=== PATIENT | male | born 1965 | race Hispanic/Latino ===

== ENCOUNTER 2020-10-19 23:20 | Emergency (ER) | payer BC, OTHER ==
[2020-10-20] MEDS ORDERED: ASPIRIN 81 MG CHEWABLE TABLET ONE (00:04)
[2020-10-20] MEDS ORDERED: HEPARIN/D5W 25,000 UNIT/500 ML BAG IV ONE (00:05)
[2020-10-20] MEDS ORDERED: NITROGLYCERIN 0.4 MG/TAB SL ONE (00:05)
[2020-10-20] MEDS ORDERED: CLOPIDOGREL 75 MG TABLET ONE (00:05)
[2020-10-20] MEDS ORDERED: HEPARIN 5000 UNIT/ML 1 ML VIAL ONE (00:05)
[2020-10-20 00:06] LABS: Absolute Lymphocytes (CBC) 2.3 K/uL (0.7-4.9); Basophils % 1.2 % (0-1.3); Hematocrit 47.4 % (39.6-49.0); Lymphocytes % 34.5 % (15.3-44.8); MPV 8.5 fL (7.6-11.3); RBC Red Blood Cell Count 5.26 M/uL (4.33-5.43)
[2020-10-20 00:07] LABS: Protime INR 0.91
[2020-10-20] MEDS ORDERED: ALTEPLASE 100 ML IV ONE (00:14)
--- NOTE | 2020-10-20 00:21 | ER ---
Nurse's Notes [facility] Name: Ilya Cruz Age: 55 yrs Sex: Male : 1965 Arrival Date: 10/19/2020 Time: 23:21 Bed 2 Private MD: Diagnosis: ST elevation (STEMI) myocardial infarction of unspecified site Presentation: 10/19 23:35 Chief complaint: Patient states: chest pain started about 45 minutes ago while patient rv having sexual intercourse/activity. pressure like, mid sternal, 5/10, constant pain, radiating to the neck. denies any cardiac problems. Coronavirus screen: Client denies travel out of the [place] in the last 14 days. Coronavirus screen: At this time, the client does not indicate any symptoms associated with coronavirus-19. Ebola Screen: No symptoms or risks identified at this time. Initial Sepsis Screen: Does the patient meet any 2 criteria? No. Patient's initial sepsis screen is negative. Does the patient have a suspected source of infection? No. Patient's initial sepsis screen is negative. Risk Assessment: Do you want to hurt yourself or someone else? Patient reports no desire to harm self or others. Onset of symptoms was October 19, 2020 at 23:00. 23:35 Method Of Arrival: Ambulatory rv 23:35 Acuity: KJ 2 rv Triage Assessment: 23:40 General: Appears uncomfortable, Behavior is calm, cooperative. Pain: Complains of pain rv in chest Pain radiates to neck Pain currently is 5 out of 10 on a pain scale. Quality of pain is described as pressure, Pain began 1 hour ago. Is continuous. EENT: No signs and/or symptoms were reported regarding the EENT system. Neuro: Level of Consciousness is awake, alert, obeys commands, Oriented to person, place, time, situation. Cardiovascular: Patient's skin is warm and dry. Rhythm is STEMI. Respiratory: Airway is patent Respiratory effort is even, unlabored. Derm: Skin is intact. Historical: - Allergies: 23:40 No Known Allergies; rv - Home Meds: 23:40 None [Active]; rv - PMHx: 23:40 None; rv - PSHx: 23:40 None; rv - Immunization history:: Adult Immunizations up to date. - Social history:: Smoking status: Patient denies any tobacco usage or history of. Screenin:42 Abuse screen: Denies threats or abuse. Denies injuries from another. Nutritional rv screening: No deficits noted. Tuberculosis screening: No symptoms or risk factors identified. Fall Risk None identified. Assessment: 10/20 00:44 Reassessment: Patient and/or family updated on plan of care and expected duration. Pain ea level reassessed. Patient is alert, oriented x 3, equal unlabored respirations, skin warm/dry/pink. Life flight at bedside. Pt being transferred to [facility]. Vital Signs: 10/19 23:35 BP 170 / 111; Pulse 99; Resp 18; Temp 98; Pulse Ox 100% ; Weight 77.11 kg; Height 5 ft. rv 6 in. (167.64 cm); Pain 5/10; 23:42 Weight 79.1 kg (M); rv 10/20 00:47 BP 140 / 107; Pulse 99; Resp 18; Temp 98; Pulse Ox 100% ; ea 10/19 23:42 Body Mass Index 28.15 (79.10 kg, 167.64 cm) rv ED Course: 10/19 23:21 Patient arrived in ED. am2 23:31 Jose Quintanilla RN is Primary Nurse. rv 23:31 Blake Gallo PA is PHCP. cp 23:31 Vin Barrientos MD is Attending Physician. cp 23:40 Triage completed. rv 23:40 Arm band placed on right wrist. Patient placed in the treatment room, on a stretcher, rv Patient notified of wait time. EKG completed in triage. Results shown to MD. 23:42 Patient has correct armband on for positive identification. matrix drier tender on. Pulse rv ox on. NIBP on. 23:42 Inserted saline lock: 20 gauge in right antecubital area, using aseptic technique. rv Blood collected. BY MADISON VELASCO. Patient maintains SpO2 saturation greater than 95% on room air. 23:50 Initiated transfer at [facility] with [place]. Call was transferred to PRANEETH Atwood, tt3 provider of pt. 10/20 00:18 XRAY Chest (1 view) In Process Unspecified. EDMS 00:39 COVID swab sent to lab. sg 00:48 No provider procedures requiring assistance completed. Patient transferred, IV remains ea in place. Administered Medications: 10/19 23:53 Not Given (Physician Discretion): Tenecteplase 40 mg IV at calculated rate once cp 23:59 Drug: PlaVIX 300 mg Route: PO; ea 10/20 00:50 Follow up: Response: No adverse reaction ea 00:00 Drug: Aspirin Chewable Tablet 324 mg Route: PO; ea 00:48 Follow up: Response: No adverse reaction ea 00:00 Drug: Nitrostat 0.4 mg Route: Sublingual; ea 00:00 Drug: Alteplase 100 mg Route: IV; Rate: calculated rate; Site: right antecubital; rv 00:51 Follow up: Response: No adverse reaction; IV Status: Infusion continued upon transfer ea 00:25 Drug: Heparin ([place]-Bolus with thrombolytic) - HEParin 60 units/kg {Co-Signature: karrie jones (Madison Zapata RN).} Route: IVP; Site: right hand; 00:50 Follow up: Response: No adverse reaction; Medication administered at discharge. ea 00:25 Drug: Atorvastatin 40 mg Route: PO; rv 00:52 Follow up: Response: No adverse reaction ea 00:27 Drug: Nitrostat 0.4 mg Route: Sublingual; ea 00:35 Drug: Nitrostat 0.4 mg Route: Sublingual; ea 00:50 Follow up: Response: No adverse reaction ea 00:52 CANCELLED (Physician Discretion): Potassium Effervescent Tablet 50 mEq PO once; ea dissolve in 4 ounces of water or juice Outcome: 00:21 ER care complete, transfer ordered by . cp 00:48 Transferred by helicopter to [facility]. ea 00:48 Condition: stable 00:48 Instructed on the need for transfer, Demonstrated understanding of instructions. 00:52 Patient left the ED. ea Signatures: Dispatcher [employer] EDMS Michael Lutz RN RN sg Page, Corey, PA PA cp Moreno, Amanda am2 Madison Zapata RN RN ea Vicente, Ronaldo, RN RN rv Trim, Tyler tt3 Madison Zapata RN, ea
--- NOTE | 2020-10-20 00:22 | EDPHYS ---
Physician Documentation [facility] Name: Ilya Cruz Age: 55 yrs Sex: Male : 1965 Arrival Date: 10/19/2020 Time: 23:21 Bed 2 Private MD: ED Physician Vin Barrientos HPI: 10/19 23:45 This 55 yrs old Male presents to ER via Ambulatory with complaints of Chest cp Pain. 23:45 The patient or guardian reports chest pain that is located primarily in the substernal cp area. 23:45 Onset: 1 hour(s) ago. The pain radiates to neck. Associated signs and symptoms: cp Pertinent negatives: abdominal pain, cough, diaphoresis, headache, lower extremity pain, lower extremity swelling, shortness of breath, syncope. 23:45 The chest pain is described as a pressure, constant, mild improvement while in ED. cp 23:45 Duration: The patient or guardian reports a single episode, that is still ongoing, but cp improving. Patient reports chest pain started while having intercourse. Historical: - Allergies: 23:40 No Known Allergies; rv - Home Meds: 23:40 None [Active]; rv - PMHx: 23:40 None; rv - PSHx: 23:40 None; rv - Immunization history:: Adult Immunizations up to date. - Social history:: Smoking status: Patient denies any tobacco usage or history of. ROS: 23:50 Constitutional: Negative for body aches, chills, fever, poor PO intake. cp 23:50 Eyes: Negative for injury, pain, redness, and discharge. cp 23:50 Cardiovascular: Positive for chest pain, Negative for edema, palpitations. 23:50 Respiratory: Negative for cough, shortness of breath, wheezing. 23:50 Abdomen/GI: Negative for abdominal pain, nausea, vomiting, and diarrhea. 23:50 Back: Positive for pain at rest. 23:50 Neuro: Negative for altered mental status, headache, syncope, weakness. 23:50 All other systems are negative. Exam: 23:48 ECG was reviewed by the Attending Physician. cp 23:52 Constitutional: The patient appears in no acute distress, alert, awake, cp non-diaphoretic, non-toxic, well developed, well nourished. 23:52 Head/Face: Normocephalic, atraumatic. cp 23:52 Eyes: Periorbital structures: appear normal, Conjunctiva: normal, no exudate, no injection, Sclera: no appreciated abnormality, Lids and lashes: appear normal, bilaterally. 23:52 ENT: External ear(s): are unremarkable, Nose: is normal, Mouth: Lips: moist, Oral mucosa: pink and intact, moist, Posterior pharynx: Airway: no evidence of obstruction, patent. 23:52 Chest/axilla: Inspection: normal, Palpation: is normal, no crepitus, no tenderness. 23:52 Cardiovascular: Rate: normal, Rhythm: regular, Edema: is not appreciated, JVD: is not appreciated. 23:52 Respiratory: the patient does not display signs of respiratory distress, Respirations: normal, no use of accessory muscles, no retractions, labored breathing, is not present, Breath sounds: are clear throughout, no decreased breath sounds, no stridor, no wheezing. 23:52 Abdomen/GI: Inspection: abdomen appears normal, Bowel sounds: active, all quadrants, Palpation: abdomen is soft and non-tender, in all quadrants, rebound tenderness, is not appreciated, voluntary guarding, is not appreciated, involuntary guarding, is not appreciated. 23:52 Back: ROM is normal. 23:52 Skin: no rash present. 23:52 Neuro: Orientation: to person, place \T\ time. Mentation: is normal, Cerebellar function: is grossly normal, Motor: moves all fours, strength is normal, Sensation: is normal. Vital Signs: 23:35 BP 170 / 111; Pulse 99; Resp 18; Temp 98; Pulse Ox 100% ; Weight 77.11 kg; Height 5 ft. rv 6 in. (167.64 cm); Pain 5/10; 23:42 Weight 79.1 kg (M); rv 10/20 00:47 BP 140 / 107; Pulse 99; Resp 18; Temp 98; Pulse Ox 100% ; ea 10/19 23:42 Body Mass Index 28.15 (79.10 kg, 167.64 cm) rv MDM: 00:04 Patient medically screened. cp 00:30 Physician consultation: was contacted at 00:15, regarding regarding transfer, to [facility]. patient's condition, DR Trevino, public health outreach worker, will be accepting physician. 00:50 Data reviewed: vital signs, nurses notes, lab test result(s), EKG, radiologic studies, cp plain films. 00:50 The patient was given aspirin in the Emergency Department. Test interpretation: by ED cp physician or midlevel provider: ECG. 10/19 23:44 Order name: Basic Metabolic Panel; Complete Time: 00:44 cp 10/20 00:45 Interpretation: Normal except: K 3.2; GLUC 387; CRE 1.60; GFR 45. 10/19 23:44 Order name: CBC with Diff; Complete Time: 00:44 cp 10/20 00:45 Interpretation: Normal except: EOSINOPHIL % 5.6. 10/19 23:44 Order name: LFT's; Complete Time: 00:44 cp 10/20 00:45 Interpretation: Normal except: AST 41; ALT 103; GLOB 3.7. 10/19 23:44 Order name: Magnesium; Complete Time: 00:44 10/19 23:44 Order name: NT PRO-BNP; Complete Time: 00:44 10/19 23:44 Order name: PT-INR; Complete Time: 00:44 10/19 23:44 Order name: Troponin (emerg Dept Use Only); Complete Time: 00:44 10/20 00:46 Interpretation: Abnormal: TROPED 0.05. 10/19 23:44 Order name: XRAY Chest (1 view) 10/19 23:44 Order name: EKG; Complete Time: 23:46 10/19 23:44 Order name: Cardiac monitoring; Complete Time: 00:06 10/19 23:44 Order name: EKG - Nurse/Tech; Complete Time: 00:06 10/19 23:44 Order name: IV Saline Lock; Complete Time: 00:06 10/19 23:44 Order name: Labs collected and sent; Complete Time: 00:06 10/19 23:44 Order name: O2 Per Protocol; Complete Time: 00:06 10/19 23:44 Order name: O2 Sat Monitoring cp EC/19 23:48 Rate is 98 beats/min. Rhythm is regular. TN interval is normal. QRS interval is normal. cp QT interval is normal. ST Segment is elevated in leads I, aVL, V2, V3, V4, V5. Interpreted by me. Reviewed by me. Administered Medications: 23:53 Not Given (Physician Discretion): Tenecteplase 40 mg IV at calculated rate once cp 23:59 Drug: PlaVIX 300 mg Route: PO; ea 10/20 00:50 Follow up: Response: No adverse reaction ea 00:00 Drug: Aspirin Chewable Tablet 324 mg Route: PO; ea 00:48 Follow up: Response: No adverse reaction ea 00:00 Drug: Nitrostat 0.4 mg Route: Sublingual; ea 00:00 Drug: Alteplase 100 mg Route: IV; Rate: calculated rate; Site: right antecubital; rv 00:51 Follow up: Response: No adverse reaction; IV Status: Infusion continued upon transfer ea 00:25 Drug: Heparin ([place]-Bolus with thrombolytic) - HEParin 60 units/kg {Co-Signature: karrie jones (Madison Zapata RN).} Route: IVP; Site: right hand; 00:50 Follow up: Response: No adverse reaction; Medication administered at discharge. ea 00:25 Drug: Atorvastatin 40 mg Route: PO; rv 00:52 Follow up: Response: No adverse reaction ea 00:27 Drug: Nitrostat 0.4 mg Route: Sublingual; ea 00:35 Drug: Nitrostat 0.4 mg Route: Sublingual; ea 00:50 Follow up: Response: No adverse reaction ea 00:52 CANCELLED (Physician Discretion): Potassium Effervescent Tablet 50 mEq PO once; ea dissolve in 4 ounces of water or juice Disposition: 01:36 Co-signature as Attending Physician, Vin Barrientos MD. ma2 Disposition: 10/20/20 00:21 Transfer ordered to [facility]. Diagnosis is ST elevation (STEMI) myocardial infarction of unspecified site. - Reason for transfer: Higher level of care. - Accepting physician is DR Trevino. - Condition is Stable. - Problem is new. - Symptoms have improved. Signatures: Dispatcher [employer] EDMS Blake Gallo PA PA cp Antunez, Elena, RN RN ea Alzahri, Mohammad, MD MD ma2 Jose Quintanilla RN RN rv Elena Antunez RN ea Corrections: (The following items were deleted from the chart) 00:29 00:11 CORONAVIRUS+MR.LAB.BRZ ordered. EDMS EDMS 00:52 00:47 Potassium Effervescent Tablet 50 mEq PO once; dissolve in 4 ounces of water or ea juice ordered. cp 00:52 00:21 10/20/2020 00:21 Transfer ordered to [facility]. ea Diagnosis is ST elevation (STEMI) myocardial infarction of unspecified site. Reason for transfer: Higher level of care. Accepting physician is DR Trevino. Condition is Stable. Problem is new. Symptoms have improved. cp
[2020-10-20] MEDS ORDERED: ATORVASTATIN 40 MG TAB ONE (00:27)
[2020-10-20 00:35] LABS: Albumin 3.9 g/dL (3.4-5.0); Bilirubin Direct 0.1 mg/dL (0-0.2); Bilirubin Total 0.5 mg/dL (0.2-1.0); Magnesium 2.3 mg/dL (1.8-2.4); Potassium 3.2 mmol/L (3.5-5.1); Protein, Total 7.6 g/dL (6.4-8.2); Troponin (Emerg Dept Use Only) 0.05 ng/mL (0.0-0.045)
[2020-10-20 00:57] VITALS: TEMP 98; O2SAT 100
[2020-10-20 00:58] VITALS: BP 140/107
--- NOTE | 2020-10-20 08:08 | RAD REPORT ---
EXAM DESCRIPTION: Javier Single View10/20/2020 12:17 am CLINICAL HISTORY: Chest pain COMPARISON: none FINDINGS: The lungs appear clear of acute infiltrate. The heart is normal size. The patient is in a poor degree of inspiration
== END 2020-10-20 00:52 | disposition short-term general hospital (02) ==
LOC: ER 23:20
DX: I21.3 ST elevation (STEMI) myocardial infarction of unspecified site (principal); Z20.822 Contact with and (suspected) exposure to COVID-19
CPT/HCPCS: 36415; 71045; 80048; 80076; 83735; 83880; 84484; 85025; 85610; 93005; 96365; 96375; 99285; U0003

== ENCOUNTER 2021-01-28 22:48 | Emergency (ER) | payer BC ==
--- OUTSIDE RECORDS SUMMARY | 2021-01-28 22:53 | XMS REPORT | Continuity of Care Document ---
:1965 Author Organization [facility] t Address [address] [place] [address] [address]. [address] [place] [address] Care Team Providers Name Role Phone Pcp MD Primary Care Physician Unavailable Jace VELASCO, N Attending Clinician Unavailable Manjeet LOPEZ, Y Attending Clinician Unavailable Bon VELASCO, A Attending Clinician Unavailable Postalian MD Attending Clinician Feliberto BONNER Attending Clinician POSTALIAN Attending Clinician Unavailable Evgeny VELASCO, T Attending Clinician Unavailable Lab, Fam Pob I Attending Clinician Unavailable Doctor Unassigned, Name Attending Clinician Unavailable POSTALIAN Admitting Clinician Unavailable Payers Payer Name Policy Type Policy Effective Date Expiration Date Sour ce Number BLUE CROSS/BLUE [id number] [facility] POS/PPO/EPOxxxxxx [place] [id number] 2020-Pr [phone] [id number], [place] [address]SWB Problems Condition Condition Condition Status Onset Resolution Last Treating Co mments Source Name Details Category Date Date Treatment Clinician Date STEMI (ST STEMI (ST Disease Active [facility] St elevation elevation 10-20 Lu s - myocardial myocardial 00:00: Me dical infarction infarction 00 Ce nter ) ) Allergies, Adverse Reactions, Alerts This patient has no known allergies or adverse reactions. Social History Social Habit Start Date Stop Date Quantity Comments Source History of tobacco Snuff User [facility] Sex Assigned At [facility] Tobacco use and 2020-10-22 2020-10-[address] [facility] [facility] - [facility]00 [facility]00 [facility] Smoking Status Start Date Stop Date Source Never smoker [facility] Medications Ordered Filled Start Stop Current Ordering Indication Dosage Frequency Signature Comments Components Source Medication Medication Date Date Medication? Clinician (SIG) Name Name prasugreL Yes 10mg QD Take [address] (EFFIENT) 10-22 tablet (10 Luke s - 10 mg Tab 00:00: mg total) Med ical tablet 00 by mouth Center daily. aspirin 81 2021- No 81mg QD Take [address] MG chewable 10-22 tablet (81 L ukes - tablet 00:00: 23:59 mg total) Medic al 00 :00 by mouth Center daily. metoprolol 2021- No 50mg QD Take [address] succinate 10-22 tablet (50 Shraddha es - (TOPROL-XL) 00:00: 23:59 mg total) Medical 50 MG 24 hr 00 :00 by mouth Cent er tablet daily. sacubitriL- Yes 1{tbl} Q.5D Take [address] valsartan 1-21 tablet by [facility] - (ENTRESTO) 00:00: mouth 2 Medi kati 24-26 mg 00 (two) Center Tab times daily. insulin Yes 30U Q.5D Inject 30 [facility] t glargine 1-21 Units [facility]ukes - (Lantus 00:00: subcutaneo Medi kati Solostar 00 usly 2 Center U-100 (two) Insulin) times 100 unit/mL daily. (3 mL) InPn insulin Use as [facility] regular -21 10- directed. [facility] - (NovoLIN R 00:00: 23:59 Medica l Regular 00 :00 Center U-100 Insuln) 100 unit/mL injection atorvastati 2020- No 80mg QD Take [address] n (LIPITOR) - 05-21 tablet (80 L ukes - 80 MG 00:00: 23:59 mg total) Medica l tablet 00 :00 by mouth Center nightly for 120 days. Vital Signs Vital Name Observation Time Observation Value Comments Source Systolic blood 2020-10-21 07:00:00 116 mm[Hg] [facility] Diastolic blood 2020-10-21 07:00:00 79 mm[Hg] [facility] Heart rate 2020-10-21 07:00:00 107 /min [facility] Body temperature 2020-10-21 07:00:00 37.44 [facility] Respiratory rate 2020-10-21 07:00:00 18 /min [facility] Oxygen saturation in 2020-10-21 07:00:00 96 /min [facility] Arterial blood by Medical Ce nter Pulse oximetry Body weight 2020-10-21 05:45:00 77.384 kg [facility] BMI 2020-10-21 05:45:00 27.54 kg/m2 [facility] Body height 2020-10-20 16:33:00 167.6 cm [facility] Procedures Procedure Date / Time Performed Performing Clinician [facility] e BLOOD CULTURE 2020-10-21 14:01:00 Feliberto [facility] BLOOD CULTURE 2020-10-21 13:55:00 Feliberto [facility] URINALYSIS W/ REFLEX 2020-10-21 13:53:00 Feliberto [facility] URINE CULTURE [facility] POCT-GLUCOSE METER 2020-10-21 13:42:00 Feliberto [facility] XR CHEST 1 VIEW 2020-10-21 10:24:00 Feliberto [facility] PORTABLE/BEDSIDE [facility] POCT-GLUCOSE METER 2020-10-21 07:31:00 Cam Trevino [facility] MAGNESIUM 2020-10-21 04:55:00 Feliberto [facility] PHOSPHORUS 2020-10-21 04:55:00 Feliberto [facility] CBC W/PLT COUNT & AUTO 2020-10-21 04:55:00 Feliberto [facility]en [facility] BASIC METABOLIC PANEL (7) 2020-10-21 04:55:00 Jasen Dao [facility] POCT-GLUCOSE METER 2020-10-20 22:54:00 Postalian, [facility] SARS-COV2/RT-PCR ([facility] & 2020-10-20 20:39:00 Feliberto [facility] - REF LABS) [facility] POCT-GLUCOSE METER 2020-10-20 16:39:00 Postalian, [facility] 2D ECHO W/ DOPPLER 2020-10-20 15:16:46 [facility] POCT-GLUCOSE METER 2020-10-20 11:10:00 Postalian, [facility] ECG 12-LEAD 2020-10-20 10:18:56 Postalian, [facility] TROPONIN I 2020-10-20 08:45:00 Postalian, [facility] POCT-GLUCOSE METER 2020-10-20 07:52:00 Postalian, [facility] CBC W/PLT COUNT & AUTO 2020-10-20 03:[facility] 2020-10-20 03:50:00 Ant [facility] MAGNESIUM 2020-10-20 03:[facility] NATRIURETIC FACTOR 2020-10-20 03:50[facility] LIPID PANEL 2020-10-20 [facility] 2020-10-20 [facility] 12-LEAD 2020-10-20 03:40[facility] PO[facility]ACT 2020-10-20 02:43:00 Postalian, [facility] POCT-ACT 2020-10-20 02:21:00 Postalian, [facility] POCT-ACT 2020-10-20 02:06:00 Postalian, [facility] ECG 12-LEAD 2020-10-20 01:26:14 Unknown, Hl7 Doctor [facility] CORONARY ANGIOS / PCI / 2020-10-20 01:15:00 Postalian, [facility] STENT [facility] REPORT OF PROCEDURE - 2020-10-20 00:00:00 [facility] Scanning [facility] VASCULAR DIAGRAM -SCAN 2020-10-20 00:00:00 Provider, Default [facility] - Scanning [facility] CARDIAC CATH REPORT - 2020-10-20 00:00:00 Provider, [facility] - SCAN Scanning [facility] Plan of Care Planned Activity Planned Date Details Comments Source Future Scheduled 2023-10-[address] [facility] - Test 00:00:00 (procedure) [code = [facility] [id number]] Future Scheduled 2020-10-[address] [facility] - Test 00:00:00 (12+) [code = [facility] DEPRESSION SCREENING (12+)] Future Scheduled 2020-06-[address] [facility] - Test 00:00:00 (#1) [code = [facility] INFLUENZA VACCINE (#1)] Future Scheduled 2017 SHINGLES VACCINES ([address] [facility] - Test 00:00:00 of 2) [code = [facility] SHINGLES VACCINES (1 of 2)] Future Scheduled 1986 DTAP/TDAP/TD VACCINES [facility] - Test 00:00:00 (1 - Tdap) [code = Medical C enter DTAP/TDAP/TD VACCINES (1 - Tdap)] Future Scheduled 1985 HEPATITIS C [facility]CRE[facility]ING [facility] - Test 00:00:00 [code = HEPATITIS C [facility] SCREENING] Future Scheduled [address] Shraddha es - Test 00:00:00 malignant neoplasm of Medica [facility] colon (procedure) [code = 482884836] Encounters Start End Encounter Admission Attending Care Care Encounter Source Date/Time Date/Time Type Type Clinicians Facility Department ID 2020-05-21 2020-05-21 Letter NEREYDA Pepper [id number] 00:00:00 00:00:00 (Out) Mary VARELA [id number] [facility] [id number] 2020-05-20 2020-05-20 Laboratory Lab, [facility] [id number] 09:01:04 09:21:04 Only Fam Pob I Health [id number] [place] [id number] Professio [id number] nal [address] 2020-05-20 2020-05-20 Letter Doctor NEREYDA [id number] 00:00:00 00:00:00 (Out) Unassigned, NICHOLE [id number] [facility] [id number] [id number] Results Test Description Test Time Test Comments Results Result Sourc e Comments VASCULAR DIAGRAM 2020-12-[address] [facility] S t [facility] -SCAN 12:12:55 unspecified - Medical provider. Center CARDIAC CATH 2020-10-[address] [facility] St [facility] REPORT - SCAN 13:12:07 unspecified - Medical provider. [place] Blood culture 2020-10-26 16:00:00 Test Item Value Reference Range Interpretation Comme nts Result (test code = 6463-4) No growth in 5 days [facility] [id number] 16:00:00 Test Item Value Reference Range Interpretation Comments CULTURE (BEAKER) (test No growth in 5 days code = 1095) BLOOD [id number] 16:00:00 Test Item Value Reference Range Interpretation Comments CULTURE (BEAKER) (test No growth in 5 days code = 1095) Urinalysis w/Microscopic + Reflex to [id number] 14:32:00 Test Item Value Reference Range Interpretation Comments Color, UA (test code Light Yellow = 5778-6) Clarity, UA (test Clear code = 5767-9) Specific [place], UA 1.008 1.001-1.035 (test code = 5811-5) pH, UA (test code = 6.0 5.0-8.0 5803-2) Protein, UA (test Negative Negative code = 51657-5) Glucose, UA (test 500 mg/dL Negative A code = 365) Ketones, UA (test Negative Negative code = 2514-8) Bilirubin, UA (test Negative Negative code = 85909-7) Blood, UA (test code Trace Negative A = 32860-9) Nitrite, UA (test Negative Negative code = 5802-4) Leukocytes, UA (test Negative Negative code = 5799-2) Urobilinogen, UA 0.2 mg/dL 0.2-1 (test code = 73746-9) RBC, UA (test code = 1 See_Comment [Autom ated 06061-9) message] The system which generated this result transmit lauren reference range : /HPF. The reference range was not used to interpret this result as normal/abnormal . WBC, UA (test code = <1 See_Comment [Autom ated 5821-4) message] The system which generated this result transmit lauren reference range : /HPF. The reference range was not used to interpret this result as normal/abnormal . Mucus (test code = Rare 8247-9) Squam Epithel, UA <1 See_Comment [Automate d (test code = 84940-1) messag e] The system which generated this result transmit lauren reference range : /HPF. The reference range was not used to interpret this result as normal/abnormal . Specimen Source (test code = 2795) ERMA (test code = ERMA) Senior Oracle Developer ID - [auto]Senior Oracle Developer ID - tech Lab Interpretation Abnormal (test code = 59164-3) [facility] URINE [id number] 14:32:00 Test Item Value Reference Range Interpretation Comments COLOR (BEAKER) (test code = 470) Light Yellow CLARITY (BEAKER) (test code = Clear 469) SPECIFIC GRAVITY UA (BEAKER) 1.008 1.001-1.035 (test code = 468) PH UA (BEAKER) (test code = 467) 6.0 5.0-8.0 PROTEIN UA (BEAKER) (test code = Negative Negative 464) GLUCOSE UA (BEAKER) (test code = 500 mg/dL Negative A 365) KETONES UA (BEAKER) (test code = Negative Negative 371) BILIRUBIN UA (BEAKER) (test code Negative Negative = 462) BLOOD UA (BEAKER) (test code = Trace Negative A 461) NITRITE UA (BEAKER) (test code = Negative Negative 465) LEUKOCYTE ESTERASE UA (BEAKER) Negative Negative (test code = 466) UROBILINOGEN UA (BEAKER) (test 0.2 mg/dL 0.2-1.0 code = 463) RBC UA (BEAKER) (test code = 1 /HPF 519) WBC UA (BEAKER) (test code = < /HPF 520) MUCUS (BEAKER) (test code = Rare 1574) SQUAMOUS EPITHELIAL (BEAKER) < /HPF (test code = 516) SOURCE(BEAKER) (test code = 2795) Senior [employer] Developer ID - [auto]Senior Oracle Developer ID - techPOC-Glucose [id number] 13:53:00 Test Item Value Reference Range Interpretation Comments POC-Glucose Meter (test 154 mg/dL 70-110 H : TE STED AT [facility] code = 1538) [address] [facility], 770 30: Senior Oracle Developer/Techni diana ID = [id number] for Obi, Melany Lab Interpretation (test Abnormal code = 14568-7) [facility]SE [id number] 13:53:00 Test Item Value Reference Range Interpretation Comments POC-GLUCOSE METER 154 mg/dL 70-110 H : TESTED A T [facility] 6720 (BEAKER) (test code = MARBELLA Loaiza [facility], 1538) [address]: Senior Oracle Developer/Techni diana ID = [id number] for Ob i, Melany RAD, CHEST, 1 VIEW, NON [id number] 11:10:00Reason for exam:->sobShould this be performed at the bedside?->Yes [facility] : 1965 Sex: MFINAL REPORT INDICATION: sob COMPARISON: None TECHNIQUE: Single frontal view of the chest. FINDINGS: Lungs and pleura: Clear lungs. No effusion.Heart and mediastinum: Normalheart size. Unremarkable mediastinal contours.Osseous structures: No acute abnormality.Other: None.IMPRESSION: No acute intrathoracic abnormality. Signed: Cristiane Rodriguez Verified Date/Time: 10/21/2020 11:10:53 Reading Location: [facility] Radiology Reading Room XR chest 1 view portable / [id number] 11:10:00Interface, External Ris In - 10/21/2020 11:13 AM CSTFINAL REPORT INDICATION: sob COMPARISON: None TECHNIQUE: Single frontal view of the chest. FINDINGS: Lungs and pleura: Clear lungs. No effusion.Heart and mediastinum: Normal heart size. Unremarkable mediastinal contours.Osseousstructures: No acute abnormality.Other: None. IMPRESSION: No acute intrathoracic abnormality. Signed : Cristiane Rodriguez Verified Date/Time: 10/21/2020 11:10:53 Reading Location: [facility] Radiology Reading Room [facility] SARS-CoV2/RT-PCR (Asymptomatic ONLY)2020-10-21 09:29:00 Test Item Value Reference Range Interpretation Comments SARS-COV2/RT-PCR Negative Not Detected, (test code = Negative, See 25817-4) external report for linked test SARS-COV-2 [facility] PERFORMING LAB (test code = 94642-7) ERMA (test code = Negative result for this ERMA) test determines that SARS-CoV-2 RNA was not present in the specimen above the Limit of Detection (LOD). However, Negative results do not preclude SARS-CoV-2 infection and should not be used as the sole basis for treatment or patient management decisions. Negative results must be combined with clinical observations, patient history, and epidemiological information. A false negative result may occur if a specimen is improperly collected, transported or handled. A false negative result should be considered if patient's recent exposures or clinical presentation indicate that COVID-19 (SARS-CoV-2) is likely and diagnostic tests for other causes of illness are negative. Re-testing should be considered in cases of suspected false negatives. The limit of detection for this assay is 800 copies/mL. This SARS CoV-2 test is a real-time RT-PCR test intended for the qualitative detection of nucleic acid from SARS-CoV-2 in a nasopharyngeal swab specimen collected from individuals suspected of COVID-19 by their healthcare provider. This test has not been Food and Drug Administration (FDA) cleared or approved. This is a modified version of an approved Emergency Use Authorization (EUA) and is in the process of review by the FDA. Once authorized by the FDA, the issued EUA will be effective until the declaration that circumstances exist justifying the authorization of the emergency use of in vitro diagnostic tests for detection and/or diagnosis of COVID-19 is terminated under Section 564(b)(2) of the Act or the EUA is revoked under Section 564(g) of the Act. Fact Sheet for Healthcare Providers:https://www.[employer]/sites/default/f christelle/product/documents/F act_Sheet_HC_Providers_L djw_XQOL-OwJ-4.pdf Fact Sheet for Healthcare Patients:https://www.Over 40 Females/sites/default/fi les/product/documents/Fa ct_Sheet_Patients_Lyra_S ARS-CoV-2.pdf Performing Laboratory:[place] [address], [place] [address] [place], [place] [address]ARS-COV2/RT-PCR ([facility] & REF LABS)2020-10-21 09:29:00 Test Item Value Reference Range Interpretation Comments SARS-COV2/RT-PCR (test Negative Not Detected, Negative, code = 2839554) See external report for linked test SARS-COV-2 PERFORMING LAB [facility] (test code = 5793656) Negative result for this test determines that SARS-CoV-2 RNA was not present in the specimen above the Limit of Detection (LOD). However, Negative results do not preclude SARS-CoV-2 infection and should not be used as the sole basis for treatment or patient management decisions. Negative results mustbe combined with clinical observations, patient history, and epidemiological information. A false negative result may occur if a specimen is improperly collected, transported or handled. A false negative result should be considered if patient's recent exposures or clinical presentation indicate that COVID-19 (SARS-CoV-2) is likely and diagnostic tests for other causes of illness are negative. Re-testing should be considered in cases of suspected false negatives.The limit of detection for this assay is 800 copies/mL.This SARS CoV-2 test is a real-time RT-PCR test intended for the qualitative detection of nucleic acid from SARS-CoV-2 in a nasopharyngeal swab specimen collected from individuals suspected of COVID-19 by their healthcare provider.This test has not been Food and Drug Administration (FDA) cleared or approved. This is a modified version of an approved Emergency Use Authorization (EUA) and is in the process of review by the FDA. Once authorized by the FDA, the issued EUA will be effective until the declaration that circumstances exist justifying the authorization of the emergency use of in vitro diagnostic tests for detection and/or diagnosis of COVID-19 is terminated under Section 564(b)(2) of the Act or the EUA is revoked under Section 564(g) of the Act.Fact Sheet for Healthcare Providers:https://www.iPierian.[employer]/sites/default/files/product/documents/Fact_Shee p_LH_Mmqhonfzh_Pjou_MYSV-EqU-3.pdfFact Sheet for Healthcare Patients:https://www.[employer]Pierian.[employer]/sites/default/files/product/ documents/Wbez_Zvqpq_Jukhrrij_Koux_CJQB-IhY-6.pdfPerforming Laboratory:[facility], [place] [address]Lzfts Metabolic Panel 2020-10-21 09:11:00 Test Item Value Reference Range Interpretation Comments Sodium (test code = 134 meq/L 136-145 L 2951-2) Potassium (test code = 3.8 meq/L 3.5-5.1 2823-3) Chloride (test code = 105 meq/L 98-107 5-0) CO2 (test code = 20 meq/L 22-29 L 2027-9) BUN (test code = 12 mg/dL 04-20 3094-0) Creatinine (test code 1.12 mg/dL 0.57-1.25 = 2160-0) Glucose (test code = 171 mg/dL 70-105 H 2345-7) Calcium (test code = 8.7 mg/dL 8.4-10.2 54513-1) EGFR (test code = 69 mL/min/1.73 [place] [address]-1) NOT ACCURATE CREATININE CLEARANCE IN PREDICTING GLOMERULAR FILTRATION RATE . ESTIMATED GFR I S NOT APPLICABLE FOR DIALYSIS PATIENTS. ERMA (test code = ERMA) Senior Oracle Developer ID - PASCUAL M Lab Interpretation Abnormal (test code = 80511-5) [facility] 09:11:00 Test Item Value Reference Range Interpretation Comments Magnesium (test code = 1.5 mg/dL 1.6-2.6 L 92215-1) ERMA (test code = ERMA) Senior Oracle Developer ID - PASCUAL M Lab Interpretation (test Abnormal code = 75891-0) [facility]21-[facility]-21 09:11:00 Test Item Value Reference Range Interpretation Comments Phosphorus (test code = 2.4 mg/dL 2.3-4.7 2777-1) ERMA (test code = ERMA) Senior Oracle Developer ID - PASCUAL M Lab Interpretation (test Normal code = 25241-4) [facility] METABOLIC [id number] 09:11:00 Test Item Value Reference Range Interpretation Comments SODIUM (BEAKER) 134 meq/L 136-145 L (test code = 381) POTASSIUM (BEAKER) 3.8 meq/L 3.5-5.1 (test code = 379) CHLORIDE (BEAKER) 105 meq/L 98-107 (test code = 382) CO2 (BEAKER) (test 20 meq/L 22-29 L code = 355) BLOOD UREA NITROGEN 12 mg/dL 04-20 (BEAKER) (test code = 354) CREATININE (BEAKER) 1.12 mg/dL 0.57-1.25 (test code = 358) GLUCOSE RANDOM 171 mg/dL 70-105 H (BEAKER) (test code = 652) CALCIUM (BEAKER) 8.7 mg/dL 8.4-10.2 (test code = 697) EGFR (BEAKER) (test 69 mL/min/1.73 ESTIMA LAUREN GFR IS code = 1092) sq m NOT ACCURATE CREATININE CLEARANCE IN PREDICTING GLOMERULAR FILTRATION RATE . ESTIMATED GFR I S NOT APPLICABLE FOR DIALYSIS PATIEN TS. Senior Oracle Developer ID - PASCUAL [id number] 09:11:00 Test Item Value Reference Range Interpretation Comments MAGNESIUM (BEAKER) (test code = 1.5 mg/dL 1.6-2.6 L 627) Senior Oracle Developer ID - PASCUAL [id number] 09:11:00 Test Item Value Reference Range Interpretation Comments PHOSPHORUS (BEAKER) (test code = 2.4 mg/dL 2.3-4.7 604) Senior Oracle Developer ID - PASCUAL MPOCT-GLUCOSE [id number] 07:45:00 Test Item Value Reference Range Interpretation Comments POC-GLUCOSE METER 186 mg/dL 70-110 H : TESTED A T [facility] 6720 (BEAKER) (test code = [place], 1538) [address]: Senior Oracle Developer/Techni diana ID = [id number] for JEANNIE PEDERSON CBC with platelet count + automated [id number] 06:34:00 Test Item Value Reference Range Interpretation Comments WBC (test code = 6690-2) 14.7 See_Comment H [A utomated message] The system [employer] generated this result transmitted ref erence range: 3.5 - 10 .5 K/L. The refe rence range was not u sed to interpret this result as normal/abnor mal. RBC (test code = 789-8) 5.45 See_Comment [Au tomated message] The system [employer] generated this result transmitted ref erence range: 4.63 - 6 .08 M/L. The refe rence range was not u sed to interpret this result as normal/abnor mal. MCHC (test code = 786-4) 34.8 See_Comment [A utomated message] The system [employer] generated this result transmitted ref erence range: 32.3 - 3 6.5 GM/DL. The refe rence range was not u sed to interpret this result as normal/abnor mal. Hematocrit (test code = 46.3 % 40.1-51 4544-3) MCV (test code = 787-2) 85.0 fL 79-92.2 Disc ordant MCV results compare d to previous result s; clinical correl ation required. MCH (test code = 785-6) 29.5 pg 25.7-32.2 RDW (test code = 788-0) 12.7 % 11.6-14.4 Platelets (test code = 230 See_Comment [Aut omated message] 777-3) The system [employer] generated this result transmitted ref erence range: 150 - 45 0 K/CU MM. The referen ce range was not u sed to interpret this result as normal/abnor mal. MPV (test code = 10.2 fL 9.4-12.4 52715-0) nRBC (test code = 413) 0 See_Comment [Aut omated message] The system [employer] generated this result transmitted ref erence range: 0 - 0 /1 00 WBC. The refere nce range was not u sed to interpret this result as normal/abnor mal. % Neutros (test code = 78 % 429) % Lymphs (test code = 13 % 430) % Monos (test code = 8 % 431) % Eos (test code = 432) 0 % % Baso (test code = 437) 0 % # Neutros (test code = 11.39 See_Comment H [Aut omated message] 670) The system [employer] generated this result transmitted ref erence range: 1.78 - 5 .38 K/L. The refe rence range was not u sed to interpret this result as normal/abnor mal. # Lymphs (test code = 1.94 See_Comment [Auto mated message] 414) The system [employer] generated this result transmitted ref erence range: 1.32 - 3 .57 K/L. The refe rence range was not u sed to interpret this result as normal/abnor mal. # Monos (test code = 1.22 See_Comment H [Autom ated message] 415) The system [employer] generated this result transmitted ref erence range: 0.30 - 0 .82 K/L. The refe rence range was not u sed to interpret this result as normal/abnor mal. # Eos (test code = 416) 0.03 See_Comment L [Au tomated message] The system [employer] generated this result transmitted ref erence range: 0.04 - 0 .54 K/L. The refe rence range was not u sed to interpret this result as normal/abnor mal. # Baso (test code = 417) 0.05 See_Comment [A utomated message] The system [employer] generated this result transmitted ref erence range: 0.01 - 0 .08 K/L. The refe rence range was not u sed to interpret this result as normal/abnor mal. Immature 0 % 0-1 Granulocytes-Relative (test code = 2801) Lab Interpretation (test Abnormal code = 20099-1) [facility] W/PLT COUNT & AUTO [id number] 06:34:00 Test Item Value Reference Range Interpretation Comments WHITE BLOOD CELL COUNT 14.7 K/ L 3.5-10.5 H (BEAKER) (test code = 775) RED BLOOD CELL COUNT 5.45 M/ L 4.63-6.08 (BEAKER) (test code = 761) HEMOGLOBIN (BEAKER) 16.1 GM/DL 13.7-17.5 (test code = 410) HEMATOCRIT (BEAKER) 46.3 % 40.1-51.0 (test code = 411) MEAN CORPUSCULAR 85.0 fL 79.0-92.2 Discordant MCV VOLUME (BEAKER) (test result s compared to code = 753) previous result s; clinical correl ation required. MEAN CORPUSCULAR 29.5 pg 25.7-32.2 HEMOGLOBIN (BEAKER) (test code = 751) MEAN CORPUSCULAR 34.8 GM/DL 32.3-36.5 HEMOGLOBIN CONC (BEAKER) (test code = 752) RED CELL DISTRIBUTION 12.7 % 11.6-14.4 WIDTH (BEAKER) (test code = 412) PLATELET COUNT 230 K/CU MM 150-450 (BEAKER) (test code = 756) MEAN PLATELET VOLUME 10.2 fL 9.4-12.4 (BEAKER) (test code = 754) NUCLEATED RED BLOOD 0 /100 WBC 0-0 CELLS (BEAKER) (test code = 413) NEUTROPHILS RELATIVE 78 % PERCENT (BEAKER) (test code = 429) LYMPHOCYTES RELATIVE 13 % PERCENT (BEAKER) (test code = 430) MONOCYTES RELATIVE 8 % PERCENT (BEAKER) (test code = 431) EOSINOPHILS RELATIVE 0 % PERCENT (BEAKER) (test code = 432) BASOPHILS RELATIVE 0 % PERCENT (BEAKER) (test code = 437) NEUTROPHILS ABSOLUTE 11.39 K/ L 1.78-5.38 H COUNT (BEAKER) (test code = 670) LYMPHOCYTES ABSOLUTE 1.94 K/ L 1.32-3.57 COUNT (BEAKER) (test code = 414) MONOCYTES ABSOLUTE 1.22 K/ L 0.30-0.82 H COUNT (BEAKER) (test code = 415) EOSINOPHILS ABSOLUTE 0.03 K/ L 0.04-0.54 L COUNT (BEAKER) (test code = 416) BASOPHILS ABSOLUTE 0.05 K/ L 0.01-0.08 COUNT (BEAKER) (test code = 417) IMMATURE 0 % 0-1 GRANULOCYTES-RELATIVE PERCENT (BEAKER) (test code = 2801) POCT-GLUCOSE [id number] 00:01:00 Test Item Value Reference Range Interpretation Comments POC-GLUCOSE METER 214 mg/dL 70-110 H : Notified RN/MD: ([facility]) (test code = TESTED AT [facility] 6720 1538) [facility], [id number]: Senior Oracle Developer/Techni diana ID = [id number] for JUAN J HOGUE POCT-GLUCOSE [id number] 16:50:00 Test Item Value Reference Range Interpretation Comments POC-GLUCOSE METER 259 mg/dL 70-110 H : TESTED A T [facility] 6720 ([facility]) (test code = 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 Physician Procedure Type of Study TTE procedure:2DECHO W DOPPLER(CW/PW/COLOR) (CHAUNCEY) Indications:Evaluation of LV Function Post AMI.Clinical HistorySTEMI, DM, s/p Thromolysis w/ rescue PCI to LAD10/20/2020, Chest painHGB 15.3HCT 45.9%Contrast Medium: Definity.Height: 66 inches Weight: 79.38 kg (175 lbs) BSA: 1.89 m^2 BMI: 28.25 kg/m^2HR: 97 bpm BP: 136/103 mmHg Summary 1. Normal LV size. The following segment(s) appear akinetic: mid to distal septum, anterior and all mid to apical segments. LVEF is moderately reduced (30-34%) . 2. Normal RV size and function. 3. Grade 1 diastolic dysfunction (impaired relaxation and low-normal LA pressure). No evidence of LV mass/thrombus. 4. Unable to estimate peak systolic PA pressure. Previous Study No prior studies available for comparison. Signature Findings Te chnical Quality: Technically difficult exam. Left Ventricle LV endocardium is adequately visualized with IV ultrasound enhancing agent. The left ventricle is chamber size (by vol index) is normal (male - LVED vol - 34-74ml/m2). No evidence of LV hypertrophy. The following segment(s) appear akinetic: mid to distal septum, anterior and all mid to apical segments. The other segments are normal. Global LV systolic function moderately reduced . LVEF by Lorenzo's method of disk assessment is moderately reduced (30-34%) . Grade 1 diastolic dysfunction (impaired relaxation and low-normal LA pressure). No evidence of LV mass/thrombus. Left Atrium LA size is normal (16-34 ml/m2) . Right Ventricle The right ventricular chamber size and systolic function are within normal limits. Right Atrium RA size is normal. Aortic Valve Normal AoV structure and function. Mitral Valve Nor mal MV structure and function. Tricuspid Valve TV structure is normal. No evidence of tricuspid regurgitation. Unable to estimate peak systolic PA pressure; inadequate TR velocity signal. Pulmonic Valve Normal PV structure and function by limited views and Doppler. Aorta Aortic root size (SInus of Valsalva diameter) is normal . Pericardium No pericardial effusion is visualized. IVC/SVC/PA/PV/Pleural The estimated RA pressure by IVC dynamics 0-5mmHg . Chambers/Structures Left Atrium LA Volume: 37.13 ml LA Area: 13.78cm^2 LA Vol. Index: 20 ml/m^2 Left Ventricle LVIDd: 4.51 cm LV Septum Diastolic: 1.05 cm LV PW Diastolic: 1.01 cm LVEDV Lorenzo's:127.99 ml LVESV Lorenzo's:84.96 ml LVEF Lorenzo's: 33.6 % LVEDVI: 68 ml/m^2 LVESVI: 45 ml/m^2 LVOT Diameter: 2.22 cm Right Ventricle RVOT VTI: 8.48 cm Aorta Ao Root S of Chela.: 3.06 cm Ascending Aorta: 2.81 cm Doppler/Quantitative Measurements Mitral Valve MV Peak E-Wave: 0.61 m/s MV Peak A-Wave: 0.75 m/s E/A Ratio: 0.81 Peak Gradient: 1.47 mmHg Deceleration Time: 182 msec MV Arpan. Peak: Tissue Doppler E' Lateral Velocity: 0.09 m/s E/E': 6.59Aortic Valve Peak Velocity: 1.05 m/s Mean Velocity: 0.69 m/s Peak Gradient: 4.42 mmHg Mean Gradient: 2.19 mmHg AV Area (continuity): 2.8 cm^2 AV VTI: 13.52 cm AV DVI:0.72 LVOT Peak Velocity: 0.67 m/s Peak Gradient: 1.82 mmHg Mean Velocity: 0.44 m/s Mean Gradient: 0.94 mmHg LVOT Diameter: 2.22 cm LVOT VTI: 9.8 cm LVOT Area: 3.87 cm^2 LVOT SV:37.91 ml LVOT CO: 3.68 l/min LVOT CI: 1.95 l/min/m^2CNaval Hospital LemooreECG 12 [id number] 16:27:55Interface, External Ris In - 10/20/2020 4:28 PM CSTVentricular Rate 101 BPMAtrial Rate 101 BPMP-R Interval 154 msQRS Duration 86 msQ-T Interval 312 msQTC Calculation(Bazett) 404 msP Bern 50 degreesR Bern 178 degreesT Bern 7 degreesSinus tachycardiaAnterolateral infarct (cited on or before 20-OCT-2020) * ACUTE [place] * Abnormal ECGWhen compared with ECG of 20-OCT-2020 03:40,No significant change was foundConfirmed by MD Kinney Roberto ([id number]) on 10/20/2020 4:27:48 [facility] [id number] 11:22:00 Test Item Value Reference Range Interpretation Comments POC-GLUCOSE METER 286 mg/dL 70-110 H : TESTED A T [facility] 6720 (LYUDMILA) (test code = MARBELLA Loaiza [place], 1538) [id number]: Senior Oracle Developer/Techni diana ID = [id number] for NATALIE BROWNE Troponin [id number] 09:56:00 Test Item Value Reference Range Interpretation Comments Troponin I (test code = 390.47 ng/mL 0-0.03 93801-3) ERMA (test code = ERMA) Troponin I (TnI) levels must be interpreted in the context of the presenting symptoms and the clinical findings. Elevated TnI levels indicate myocardial damage, but are not specific for ischemic heart disease. Elevated TnI levels are seen in patients with other cardiac conditions (including myocarditis and congestive heart failure), and slight TnI elevations occur in patients with other conditions, including sepsis, renal failure, acidosis, acute neurological disease, and persistent tachyarrhythmia.Opera tor ID - ANTHONY FOperator ID - ANTHONY F Lab Interpretation (test Abnormal code = 69820-6) [facility] [id number] 09:56:00 Test Item Value Reference Range Interpretation Comments TROPONIN I (BEAKER) (test code = 390.47 ng/mL 0.00-0.03 HH 397) Troponin I (TnI) levels must be interpreted in the context of the presenting symptoms and the clinical findings. Elevated TnI levels indicate myocardial damage, but are not specific for ischemic heart disease. Elevated TnI levels are seen in patients with other cardiac conditions (including myocarditis and congestive heart failure), and slight TnI elevations occur in patients with other conditions, including sepsis, renal failure, acidosis, acute neurological disease, and persistent tachyarrhythmia.Senior Oracle Developer ID - ANTHONY FOperator ID Juventino CRUZ FPOCT-GLUCOSE [id number] 08:04:00 Test Item Value Reference Range Interpretation Comments POC-GLUCOSE METER 284 mg/dL 70-110 H : Notified RN/MD: (LYUDMILA) (test code = TESTED AT [facility] 67 1538) [facility], [id number]: Senior Oracle Developer/Techni diana ID = [id number] for NATALIE BROWNE Hemoglobin [id number] 07:54:00 Test Item Value Reference Range Interpretation Comments Hemoglobin A1C (test code = 4548-4) 8.9 % 4.3-6.1 H Lab Interpretation (test code = Abnormal 23674-9) [facility] HospitalHEMOGLOBIN [id number] 07:54:00 Test Item Value Reference Range Interpretation Comments HEMOGLOBIN A1C (BEAKER) (test code = 8.9 % 4.3-6.1 H 368) CBC W/PLT COUNT & AUTO [id number] 04:34:00 Test Item Value Reference Range Interpretation Comments WHITE BLOOD CELL COUNT (BEAKER) 11.9 K/ L 3.5-10.5 H (test code = 775) RED BLOOD CELL COUNT (BEAKER) 5.14 M/ L 4.63-6.08 (test code = 761) HEMOGLOBIN (BEAKER) (test code = 15.3 GM/DL 13.7-17.5 410) HEMATOCRIT (BEAKER) (test code = 45.9 % 40.1-51.0 411) MEAN CORPUSCULAR VOLUME (BEAKER) 89.3 fL 79.0-92.2 (test code = 753) MEAN CORPUSCULAR HEMOGLOBIN 29.8 pg 25.7-32.2 (BEAKER) (test code = 751) MEAN CORPUSCULAR HEMOGLOBIN CONC 33.3 GM/DL 32.3-36.5 (BEAKER) (test code = 752) RED CELL DISTRIBUTION WIDTH 12.5 % 11.6-14.4 (BEAKER) (test code = 412) PLATELET COUNT (BEAKER) (test 248 K/CU MM 150-450 code = 756) MEAN PLATELET VOLUME (BEAKER) 9.7 fL 9.4-12.4 (test code = 754) NUCLEATED RED BLOOD CELLS 0 /100 WBC 0-0 (BEAKER) (test code = 413) NEUTROPHILS RELATIVE PERCENT 87 % (BEAKER) (test code = 429) LYMPHOCYTES RELATIVE PERCENT 7 % (BEAKER) (test code = 430) MONOCYTES RELATIVE PERCENT 4 % (BEAKER) (test code = 431) EOSINOPHILS RELATIVE PERCENT 0 % (BEAKER) (test code = 432) BASOPHILS RELATIVE PERCENT 1 % (BEAKER) (test code = 437) NEUTROPHILS ABSOLUTE COUNT 10.42 K/ L 1.78-5.38 H (BEAKER) (test code = 670) LYMPHOCYTES ABSOLUTE COUNT 0.82 K/ L 1.32-3.57 L (BEAKER) (test code = 414) MONOCYTES ABSOLUTE COUNT (BEAKER) 0.53 K/ L 0.30-0.82 (test code = 415) EOSINOPHILS ABSOLUTE COUNT 0.05 K/ L 0.04-0.54 (BEAKER) (test code = 416) BASOPHILS ABSOLUTE COUNT (BEAKER) 0.06 K/ L 0.01-0.08 (test code = 417) IMMATURE GRANULOCYTES-RELATIVE 0 % 0-1 PERCENT (BEAKER) (test code = 2801) B-type Natriuretic Factor (BNP)2020-10-20 04:27:00 Test Item Value Reference Range Interpretation Comments BNP (test code = 47626-4) 13 pg/mL 0-100 ERMA (test code = ERMA) Senior Oracle Developer ID - PIAYA L Lab Interpretation (test Normal code = 91171-4) [facility] HospitalB-TYPE NATRIURETIC FACTOR (BNP)2020-10-20 04:27:00 Test Item Value Reference Range Interpretation Comments B-TYPE NATRIURETIC PEPTIDE (BEAKER) 13 pg/mL 0-100 (test code = 700) Senior Oracle Developer ID - MIGUEL LComprehensive metabolic [id number] 04:24:00 Test Item Value Reference Range Interpretation Comments Protein, Total (test 6.9 See_Comment [Autom ated code = 2885-2) message] The system which generated this result transmit lauren reference range : 6.0 - 8.3 gm/dL . The reference range was not u sed to interpret th is result as normal/abnormal . Albumin (test code = 3.9 g/dL 3.5-5 87541-7) Alkaline Phosphatase 64 U/L 40-150 (test code = 6768-6) Total Bilirubin (test 0.5 mg/dL 0.2-1.2 code = 1975-2) Sodium (test code = 138 meq/L 423-544 9445-2) Potassium (test code 3.2 meq/L 3.5-5.1 L = 2823-3) Chloride (test code = 105 meq/L 98-107 2075-0) CO2 (test code = 25 meq/L 22-29 2028-9) BUN (test code = 16 mg/dL 7-21 3094-0) Creatinine (test code 1.36 mg/dL 0.57-1.25 H = 2160-0) Glucose (test code = 319 mg/dL 70-105 H 2345-7) Calcium (test code = 9.0 mg/dL 8.4-10.2 58797-2) AST (test code = 570 U/L 5-34 H 1920-8) ALT (test code = 157 U/L 6-55 H 1742-6) EGFR (test code = 55 mL/min/1.73 [place] [address]-1) NOT ACCURATE CREATININE CLEARANCE IN PREDICTING GLOMERULAR FILTRATION RATE . ESTIMATED GFR I S NOT APPLICABLE FOR DIALYSIS PATIEN TS. ERMA (test code = ERMA) Senior Oracle Developer ID - PASCUAL Cervantes Lab Interpretation Abnormal (test code = 18748-7) [facility] HospitalLipid [id number] 04:24:00 Test Item Value Reference Range Interpretation Comments Triglycerides (test 77 mg/dL code = 2571-8) Cholesterol (test code 183 mg/dL = 2093-3) HDL (test code = 39 mg/dL 2085-06) LDL Calculated (test 129 mg/dL code = 91772-5) ERMA (test code = ERMA) Triglyceride Reference Range: Low Risk <150 Borderline 150-199 High Risk 200-499 Very High Risk >=500 Cholesterol Reference Range: Low Risk <200 Borderline 200-239 High Risk >240 HDL Cholesterol Reference Range: Low Risk >=60 High Risk <40 LDL Cholesterol Reference Range: Optimal <100 Near Optimal 100-129 Borderline 130-159 High 160-189 Very High >=190 Senior Oracle Developer JARON Juventino Cervantes [facility] HospitalCOMPREHENSIVE METABOLIC [id number] 04:24:00 Test Item Value Reference Range Interpretation Comments TOTAL PROTEIN 6.9 gm/dL 6.0-8.3 (BEAKER) (test code = 770) ALBUMIN (BEAKER) 3.9 g/dL 3.5-5.0 (test code = 1145) ALKALINE PHOSPHATASE 64 U/L 40-150 (BEAKER) (test code = 346) BILIRUBIN TOTAL 0.5 mg/dL 0.2-1.2 (BEAKER) (test code = 377) SODIUM (BEAKER) (test 138 meq/L 136-145 code = 381) POTASSIUM (BEAKER) 3.2 meq/L 3.5-5.1 L (test code = 379) CHLORIDE (BEAKER) 105 meq/L 98-107 (test code = 382) CO2 (BEAKER) (test 25 meq/L 22-29 code = 355) BLOOD UREA NITROGEN 16 mg/dL 7-21 (BEAKER) (test code = 354) CREATININE (BEAKER) 1.36 mg/dL 0.57-1.25 H (test code = 358) GLUCOSE RANDOM 319 mg/dL 70-105 H (BEAKER) (test code = 652) CALCIUM (BEAKER) 9.0 mg/dL 8.4-10.2 (test code = 697) AST (SGOT) (BEAKER) 570 U/L 5-34 H (test code = 353) ALT (SGPT) (BEAKER) 157 U/L 6-55 H (test code = 347) EGFR (BEAKER) (test 55 mL/min/1.73 ESTIMA LAUREN GFR IS code = 1092) sq m NOT ACCURATE CREATININE CLEARANCE IN PREDICTING GLOMERULAR FILTRATION RATE . ESTIMATED GFR I S NOT APPLICABLE FOR DIALYSIS PATIEN TS. Senior Oracle Developer ID - PASCUAL [id number] 04:24:00 Test Item Value Reference Range Interpretation Comments MAGNESIUM (BEAKER) (test code = 2.0 mg/dL 1.6-2.6 627) Senior Oracle Developer ID - PASCUAL MLIPID [id number] 04:24:00 Test Item Value Reference Range Interpretation Comments TRIGLYCERIDES (BEAKER) (test code = 77 mg/dL 540) CHOLESTEROL (BEAKER) (test code = 183 mg/dL 631) HDL CHOLESTEROL (BEAKER) (test code 39 mg/dL = 976) LDL CHOLESTEROL CALCULATED (BEAKER) 129 mg/dL (test code = 633) Triglyceride Reference Range: Low Risk <150 Borderline 150-199 High Risk 200-499 Very High Risk >=500Cholesterol Reference Range: Low Risk <200 Borderline 200-239 High Risk >240HDL Cholesterol Reference Range: Low Risk >=60 High Risk <40LDL Cholesterol Reference Range: Optimal <100 Near Optimal 100-129 Borderline 130-159 High 160-189 Very High >=190 Senior Oracle Developer ID - PASCUAL [facility] ACTIVATED CLOTTING [id number] 03:00:00 Test Item Value Reference Range Interpretation Comments Activated Clotting Time 307 sec : 74 -137 seconds, (test code = 441) Baseline: TESTED AT [address], [facility] 30: Senior Oracle Developer/Techni diana ID = [id number] for Cyndy Ybarra [facility] HospitalPOCT-[id number] 03:00:00 Test Item Value Reference Range Interpretation Comments ACTIVATED CLOTTING TIME 307 sec : 74 -137 seconds, (BEAKER) (test code = Baseli ne: TESTED AT 441) [facility] [address] [place] [address], [address]: Senior Oracle Developer/Techni diana ID = [id number] for Kristian Fields tanisha [id number] 02:37:00 Test Item Value Reference Range Interpretation Comments ACTIVATED CLOTTING TIME 252 sec : 74 -137 seconds, (BEAKER) (test code = Baseli ne: TESTED AT 441) [address], [facility] 30: Senior Oracle Developer/Techni diana ID = [id number] for JOHN CADENA [id number] 02:22:00 Test Item Value Reference Range Interpretation Comments ACTIVATED CLOTTING TIME 186 sec : 74 -137 seconds, (BEAKER) (test code = Homer ne: TESTED AT 441) [facility] [address] [facility], [address]: Senior Oracle Developer/Techni diana ID = [id number] for JaynejustinKristian [id number] 00:00:00Ordered by an unspecified provider.[facility]
[2021-01-28 23:27] LABS: Absolute Lymphocytes (CBC) 0.7 K/uL (0.7-4.9); Basophils % 0.3 % (0-1.3); Hematocrit 40.4 % (39.6-49.0); Lymphocytes % 8.7 % (15.3-44.8); MPV 9.3 fL (7.6-11.3); RBC Red Blood Cell Count 4.36 M/uL (4.33-5.43)
[2021-01-28 23:34] LABS: Potassium 3.9 mmol/L (3.5-5.1)
[2021-01-28] MEDS ORDERED: NA CHLORIDE 0.9% 1,000 ML ONE (23:40)
--- NOTE | 2021-01-29 01:00 | EDPHYS ---
Physician Documentation [facility] Name: Ilya Cruz Age: 55 yrs Sex: Male : 1965 Arrival Date: 01/28/2021 Time: 22:52 Bed 6 Private MD: ED Physician Michael Paul HPI: 01/28 23:25 This 55 yrs old Male presents to ER via EMS with complaints of Low Blood Sugar.jr8 23:25 Patient stated that the last thing he remembers was being at work. Co-workers of jr8 patient called EMS. Patient was walking on the road, altered per EMS. BGL low upon checking on scene. Was given glucose which resolved mental status change. Brought to ED at that time for further evaluation . Onset: The symptoms/episode began/occurred acutely, today. Severity of symptoms: At their worst the symptoms were moderate in the emergency department the symptoms have improved. It is unknown whether or not the patient has had similar symptoms in the past. The patient has not recently seen a physician. Historical: - Allergies: 22:54 No Known Allergies; rv - Home Meds: 22:54 INSULIN [Active]; rv - PMHx: 22:54 Diabetes - IDDM; rv - PSHx: 22:54 None; rv - Immunization history:: Adult Immunizations up to date. - Social history:: Smoking status: Patient denies any tobacco usage or history of. ROS: 23:28 Eyes: Negative for injury, pain, redness, and discharge, ENT: Negative for injury, jr8 pain, and discharge, Neck: Negative for injury, pain, and swelling, Cardiovascular: Negative for chest pain, palpitations, and edema, Respiratory: Negative for shortness of breath, cough, wheezing, and pleuritic chest pain, Abdomen/GI: Negative for abdominal pain, nausea, vomiting, diarrhea, and constipation, Back: Negative for injury and pain, MS/Extremity: Negative for injury and deformity, Skin: Negative for injury, rash, and discoloration, Neuro: Negative for headache, weakness, numbness, tingling, and seizure. Exam: 23:28 Eyes: Pupils equal round and reactive to light, extra-ocular motions intact. Lids and jr8 lashes normal. Conjunctiva and sclera are non-icteric and not injected. Cornea within normal limits. Periorbital areas with no swelling, redness, or edema. ENT: Nares patent. No nasal discharge, no septal abnormalities noted. Tympanic membranes are normal and external auditory canals are clear. Oropharynx with no redness, swelling, or masses, exudates, or evidence of obstruction, uvula midline. Mucous membranes moist. Neck: Trachea midline, no thyromegaly or masses palpated, and no cervical lymphadenopathy. Supple, full range of motion without nuchal rigidity, or vertebral point tenderness. No Meningismus. Cardiovascular: Regular rate and rhythm with a normal S1 and S2. No gallops, murmurs, or rubs. Normal PMI, no JVD. No pulse deficits. Respiratory: Lungs have equal breath sounds bilaterally, clear to auscultation and percussion. No rales, rhonchi or wheezes noted. No increased work of breathing, no retractions or nasal flaring. Abdomen/GI: Soft, non-tender, with normal bowel sounds. No distension or tympany. No guarding or rebound. No evidence of tenderness throughout. Skin: Cool, dry with normal turgor. Normal color with no rashes, no lesions, and no evidence of cellulitis. MS/ Extremity: Pulses equal, no cyanosis. Neurovascular intact. Full, normal range of motion. Neuro: Awake and alert, GCS 15, oriented to person, place, time, and situation. Cranial nerves II-XII grossly intact. Motor strength 5/5 in all extremities. Sensory grossly intact. Cerebellar exam normal. Normal gait. Vital Signs: 22:52 BP 110 / 80; Pulse 62; Resp 16; Temp 98.1; Pulse Ox 100% ; Weight 69.85 kg; Height 5 rv ft. 6 in. (167.64 cm); Pain 0/10; 05 00:11 BP 119 / 73; Pulse 55; Resp 19; Pulse Ox 98% ; rr5 00:59 BP 104 / 70; Pulse 50; Resp 16; Pulse Ox 99% ; rr5 01/28 22:52 Body Mass Index 24.86 (69.85 kg, 167.64 cm) rv MDM: 01/28 23:02 Patient medically screened. [facility] 23:35 Data reviewed: vital signs, nurses notes, lab test result(s), EKG. Data interpreted: [facility] Pulse oximetry: on room air is 100 %. Interpretation: normal. Counseling: I had a detailed discussion with the patient and/or guardian regarding: the historical points, exam findings, and any diagnostic results supporting the discharge/admit diagnosis, lab results, the need for outpatient follow up, a family practitioner, to return to the emergency department if symptoms worsen or persist or if there are any questions or concerns that arise at home. Response to treatment: the patient's symptoms have resolved after treatment. ED course: Patient started on glimepride yesterday. Most likely cause of hypoglycemia. Recommended stopping for now and talking with his PCP again. Patient good with this . 01/29 00:58 ED course: Patients sugars remain stable after eating. Will d/c home to follow up with [facility] PCP. 01/28 23:04 Order name: Glucose, Ancillary Testing; Complete Time: 23:05 EDMS 01/28 23:06 Order name: CBC with Diff; Complete Time: 23:45 8 01/28 23:06 Order name: IV; Complete Time: 23:09 jr8 01/28 23:06 Order name: Basic Metabolic Panel; Complete Time: 23:45 8 01/29 00:19 Order name: Glucose, Ancillary Testing; Complete Time: 00:20 EDMS 01/28 23:06 Order name: EKG - Nurse/Tech; Complete Time: 23:09 jr Administered Medications: 01/28 23:23 Drug: NS 0.9% 1000 ml Route: IV; Rate: 1000 ml; Site: right forearm; rr5 01/29 01:00 Follow up: Response: No adverse reaction; IV Status: Completed infusion; IV Intake: rr5 1000ml Point of Care Testing: Blood Glucose: 01/28 22:54 Blood Glucose: 143 mg/dL; rr5 01/29 00:10 Blood Glucose: 124 mg/dL; rr5 00:59 Blood Glucose: 166 mg/dL; rr5 Ranges: Critical Glucose Levels:Adult <50 mg/dl or >400 mg/dl <40 mg/dl or >180 mg/dl Disposition: 04:08 Co-signature as Attending Physician, Michael Paul MD. [email or web address] Disposition: 01/29/21 00:59 Discharged to Home. Impression: Hypoglycemia, unspecified. - Condition is Stable. - Discharge Instructions: Hypoglycemia, Blood Glucose Monitoring, Adult. - Medication Reconciliation Form, Thank You Letter, Antibiotic Education, Prescription Opioid Use form. - Follow up: Private Physician; When: 2 - 3 days; Reason: Recheck today's complaints, Continuance of care, Re-evaluation by your physician. - Problem is new. - Symptoms have improved. Signatures: Dispatcher [employer] EDMS Norm Sena PA PA jr8 Jose Quintanilla, RN RN rv Jesse oStomayor RN RN rr5 Michael Paul MD MD 7 Corrections: (The following items were deleted from the chart) 01:04 00:59 01/29/2021 00:59 Discharged to Home. Impression: Hypoglycemia, unspecified. rv Condition is Stable. Forms are Medication Reconciliation Form, Thank You Letter, Antibiotic Education, Prescription Opioid Use. Follow up: Private Physician; When: 2 - 3 days; Reason: Recheck today's complaints, Continuance of care, Re-evaluation by your physician. Problem is new. Symptoms have improved. jr8
--- NOTE | 2021-01-29 01:00 | ER ---
Nurse's Notes [facility] Name: Ilya Cruz Age: 55 yrs Sex: Male : 1965 Arrival Date: 01/28/2021 Time: 22:52 Bed 6 Private MD: Diagnosis: Hypoglycemia, unspecified Presentation: 01/28 22:52 Chief complaint: EMS states: FOUND ON THE SIDE OF THE ROAD, DISORIENTED, TAKES INSULIN rv FOR DM, BGL WAS INITIALLY AT 36, GIVEN 200ML OF D10 IV FLUID, PATIENT IS ALERT AND ORIENTED X 4. Coronavirus screen: Client denies travel out of the [place] in the last 14 days. Ebola Screen: No symptoms or risks identified at this time. Initial Sepsis Screen: Does the patient meet any 2 criteria? No. Patient's initial sepsis screen is negative. Does the patient have a suspected source of infection? No. Patient's initial sepsis screen is negative. Risk Assessment: Do you want to hurt yourself or someone else? Patient reports no desire to harm self or others. Onset of symptoms was January 28, 2021. 22:52 Method Of Arrival: EMS: [facility] rv 22:52 Acuity: KJ 3 rv Triage Assessment: 22:54 General: Appears comfortable, Behavior is calm, cooperative. Pain: Denies pain. EENT: rv No signs and/or symptoms were reported regarding the EENT system. Neuro: Level of Consciousness is awake, alert, obeys commands, Oriented to person, place, time, situation. Cardiovascular: Patient's skin is warm and dry. Respiratory: Airway is patent Respiratory effort is even, unlabored, Breath sounds are clear bilaterally. Derm: Skin is intact. Historical: - Allergies: 22:54 No Known Allergies; rv - Home Meds: 22:54 INSULIN [Active]; rv - PMHx: 22:54 Diabetes - IDDM; rv - PSHx: 22:54 None; rv - Immunization history:: Adult Immunizations up to date. - Social history:: Smoking status: Patient denies any tobacco usage or history of. Screenin:56 Abuse screen: Denies threats or abuse. Denies injuries from another. Nutritional rv screening: No deficits noted. Tuberculosis screening: No symptoms or risk factors identified. Fall Risk None identified. Assessment: 23:05 Reassessment: dinner tray given. rr5 01/29 00:10 Reassessment: Patient appears in no apparent distress at this time. Patient is alert, rr5 oriented x 3, equal unlabored respirations, skin warm/dry/pink. repeat blood sugar 124 mg/dl fruit snacks given, no complaints made. Vital Signs: 01/28 22:52 BP 110 / 80; Pulse 62; Resp 16; Temp 98.1; Pulse Ox 100% ; Weight 69.85 kg; Height 5 rv ft. 6 in. (167.64 cm); Pain 0/10; 01/29 00:11 BP 119 / 73; Pulse 55; Resp 19; Pulse Ox 98% ; rr5 00:59 BP 104 / 70; Pulse 50; Resp 16; Pulse Ox 99% ; rr5 01/28 22:52 Body Mass Index 24.86 (69.85 kg, 167.64 cm) rv ED Course: 01/28 22:52 Patient arrived in ED. rv 22:54 Triage completed. rv 22:54 Arm band placed on right wrist. Patient placed in the treatment room, on a stretcher, rv Patient notified of wait time. 22:55 Maintain EMS IV. Dressing intact. Site clean \T\ dry. Gauge \T\ site: G20 LFA. rv 22:55 EKG done, by ED staff, reviewed by Norm DACOSTA. rr5 22:56 Patient has correct armband on for positive identification. court recording monitor on. Pulse rv ox on. NIBP on. 23:00 Inserted saline lock: 20 gauge in right forearm, using aseptic technique. rr5 23:02 [facility] jr8 23:02 Michael Paul MD is Attending Physician. jr8 23:07 Jesse Sotomayor RN is Primary Nurse. rr5 01/29 01:03 No provider procedures requiring assistance completed. IV discontinued, intact, rv bleeding controlled, No redness/swelling at site. Pressure dressing applied. Administered Medications: 01/28 23:23 Drug: NS 0.9% 1000 ml Route: IV; Rate: 1000 ml; Site: right forearm; rr5 01/29 01:00 Follow up: Response: No adverse reaction; IV Status: Completed infusion; IV Intake: rr5 1000ml Point of Care Testing: Blood Glucose: 01/28 22:54 Blood Glucose: 143 mg/dL; rr5 01/29 00:10 Blood Glucose: 124 mg/dL; rr5 00:59 Blood Glucose: 166 mg/dL; rr5 Ranges: Intake: 01:00 IV: 1000ml; Total: 1000ml. rr5 Outcome: 00:59 Discharge ordered by jr8 01:03 Discharged to home ambulatory, with family. rv 01:03 Condition: good 01:03 Discharge instructions given to patient, Instructed on discharge instructions, follow up and referral plans. Demonstrated understanding of instructions, follow-up care. 01:04 Patient left the ED. rv Signatures: Norm Sena PA PA jr8 Jose Quintanilla RN RN rv Jesse Sotomayor, RN RN rr5 Corrections: (The following items were deleted from the chart) 01/28 23:14 22:54 Blood Glucose: Blood Glucose Vjjnsph=204 mg/dL. rv rr5
[2021-01-29 01:18] VITALS: TEMP 98.1
[2021-01-29 01:21] VITALS: BP 104/70; O2SAT 99
--- NOTE | 2021-01-31 09:23 | EKG ---
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
== END 2021-01-29 01:04 | disposition home or self-care (01) ==
LOC: ER 22:48
DX: E11.649 Type 2 diabetes mellitus with hypoglycemia without coma (principal); Z79.4 Long term (current) use of insulin
CPT/HCPCS: 96361; 93005; 85025; 80048; 36415; 82947 ×3; 96360; 99284; J7030